=== PATIENT | male | born 1945 | race Caucasian/White ===

== ENCOUNTER 2017-05-15 20:46 | Inpatient (IN) | payer MEDICARE ==
[~2017-05-15] VITALS: Ht 170.1 cm; Wt 79.4 kg
--- NOTE | ~2017-05-15 | PR ---
[place], [place] PROGRESS NOTE NAME: EVANGELISTA ROSARIO UNIT #: [id number] ROOM: 310 DOCTOR: CASTRO VOGEL MD BIRTHDATE: [birth year] DOS: 05/17/2017 CHIEF COMPLAINT: "I don't feel well." SUMMARY OF THE VISIT: The patient was interviewed as he rested quietly in bed. He reports that he feels very nauseated and upset and that he did have loose bowel movements this morning. He also continues to complain of significant depression and just feels like giving up. MENTAL STATUS: He is alert and oriented. Mood does seem to be horribly depressed. Affect is flat, blunted and constricted. He continues to speak in a very soft whisper as if he has no desire or energy to carry on. He denies kalli or hypomania and likewise there are no psychotic symptoms noted. Memory for the most part is intact. PLAN: I will increase his Remeron from 15 to 22.5 mg at bedtime in an effort to impact positively on his mood. We will continue to engage in individual and elizondo milieu activity with the plan to return home when psychiatrically stable. CASTRO VOGEL MD CM:PNTRANS [id number] CASTRO VOGEL MD 05/17/17 1118 interface
--- NOTE | ~2017-05-15 | PR ---
[place], [place] PROGRESS NOTE NAME: EVANGELISTA ROSARIO UNIT #: [id number] ROOM: 310 DOCTOR: CASTRO VOGEL MD BIRTHDATE: [birth year] DOS: 05/20/2017 CHIEF COMPLAINT: "I just feel so out of it." SUMMARY OF THE VISIT: The patient was interviewed as he sat in the breakfast area attempting to eat his breakfast. He had approximately a half of his breakfast eaten. He engaged in very brief conversation and had a hard time focusing. He reports that despite the increase in the Remeron, he continues to feel very spaced out and very somnolent in the morning. He also continues to have persistent depressive symptoms. MENTAL STATUS: He is alert and oriented. Mood does seem to still be depressed. Affect is flat, blunted and constricted. He still talks very whisper like. There is no kalli or hypomania. There are no overt auditory or visual hallucinations. No delusions, no paranoia. Short, intermediate and long-term memories for the most part are intact. PLAN: Given the fact that he is continuing to have increased side effects with the Remeron, I will discontinue Remeron in lieu of Trintellix 10 mg at bedtime. The Trintellix should not cause the overall level of somnolence that he is having, plus it should improve concentration and cognition. We will continue to engage in individual and elizondo milieu activity, returning to the least restrictive environment when psychiatrically stable. CASTRO VOGEL MD CM:PNTRANS 2 CASTRO VOGEL MD 05/20/1723 interface
--- NOTE | ~2017-05-15 | PR ---
[place], [place] PROGRESS NOTE NAME: EVANGELISTA ROSARIO UNIT #: [id number] ROOM: 310 DOCTOR: CASTRO VOGEL MD BIRTHDATE: [birth year] DOS: 05/23/2017 CHIEF COMPLAINT: "I want to be able to go home soon." SUMMARY OF THE VISIT: The patient was interviewed in the dining area. He actually engaged in much more spontaneous and elaborate conversation. He made better eye contact. He continues to report depression, but there does seem to be a trend towards improvement. He does report tolerating the medication well and did tolerate the Abilify well last evening. MENTAL STATUS: He is alert and oriented. Mood does seem to be trending towards euthymia, although he does not vocalize this. There is no kalli or hypomania. There are no overt auditory or visual hallucinations. No delusions, no paranoia. Memory is intact. PLAN: I will maintain his current dose of Trintellix and Abilify, engage in individual and elizondo milieu activity, returning then to the least restrictive environment when stable. CASTRO VOGEL MD CM:PNTRANS CASTRO VOGEL MD 05/23/17 0945 interface
--- NOTE | ~2017-05-15 | PR ---
[place], [place] PROGRESS NOTE NAME: EVANGELISTA ROSARIO UNIT #: [id number] ROOM: 310 DOCTOR: CASTRO VOGEL MD BIRTHDATE: [birth year] DOS: 05/24/2017 CHIEF COMPLAINT: "I don't know if I have a place to go." SUMMARY OF THE VISIT: The patient was interviewed in the dining area. He had completed his breakfast and was sitting interacting with peers. He was much more conversant than he had been during the early part of his stay. He actually was spontaneous in his thought process and was able to form full sentences. He was concerned that he would not necessarily have a place to go. When I discussed this with the treatment team, it was noted that his family voiced concern about him returning home if he was not attending to his ADLs. This seems now to be a moot point as he has been bathing, taking care of himself, changing his clothes as needed. MENTAL STATUS: He is much more alert and oriented. He is conversant. Mood does seem to be strongly trending towards euthymia. Affect is much more appropriate. There is no symptom suggestive of kalli or hypomania. There are no overt auditory or visual hallucinations. No delusions. Memory for the most part seems to be intact. PLAN: I will continue his current medication regimen of Trintellix 20 mg a day, augment it with Abilify 5, may need to increase the Abilify further, but we will continue to monitor and utilize these doses. We will continue to engage in individual and elizondo milieu activity with the ultimate plan to return home when psychiatrically stable. CASTRO VOGEL MD CM:PNTRANS 0937 CASTRO VOGEL MD 05/24/17 0959 interface
--- NOTE | ~2017-05-15 | PR ---
[place], [place] PROGRESS NOTE NAME: EVANGELISTA ROSARIO UNIT #: [id number] ROOM: 310 DOCTOR: CASTRO VOGEL MD BIRTHDATE: [birth year] DOS: 05/22/2017 CHIEF COMPLAINT: "I want to be able to go home soon." SUMMARY OF THE VISIT: The patient was interviewed as he was sitting in front of his breakfast. He had barely touched his breakfast, perhaps eating about 20%. He continued to talk in a very soft whisper and reported at one level he wanted to go home, but then when pressed, he stated he is still feeling horribly depressed. The only positive is he is no longer having the somnolence that he had with the Remeron. He did report sleeping well with the Trintellix without the hangover effect. He continues to be depressed. MENTAL STATUS: He is alert and oriented. Mood does still seem to be horribly depressed. He is sad with a constricted affect. He speaks in a soft whisper like manner and most of his responses tended to be short and simple. There was no kalli or hypomania. There are no overt auditory or visual hallucinations. No delusions, no paranoia. Memory for the most part is intact. PLAN: I will go ahead and augment the Trintellix with a low dose of Abilify, utilizing Abilify 5 mg at bedtime to try to be catalytic in making the Trintellix work faster. I will renew his p.r.n. Ativan should he require further intervention. Engage in individual and elizondo milieu activity with the plan to return to the least restrictive environment when psychiatrically stable. CASTRO VOGEL MD CM:PNTRANS 6 CASTRO VOGEL MD 05/22/1757 interface
--- NOTE | ~2017-05-15 | PR ---
[place], [place] PROGRESS NOTE NAME: EVANGELISTA ROSARIO UNIT #: [id number] ROOM: 310 DOCTOR: CASTRO VOGEL MD BIRTHDATE: [birth year] DOS: 05/19/2017 CHIEF COMPLAINT: "I slept better, I feel so much better." SUMMARY OF THE VISIT: The patient was interviewed as he rested quietly in bed. He engaged readily in conversation. He was less sedate than he was yesterday and his speech was a little bit more directed and louder than the whisper that he normally speaks. He did report that he is feeling better than upon admission and is seeing day-to-day improvement. MENTAL STATUS: He is alert and oriented to person, place and very approximate to time. Mood does seem to be finally trending towards euthymia. Affect is more appropriate. There is no kalli or hypomania. There are no overt auditory or visual hallucinations. No delusions, no paranoia. Short, intermediate and long-term memory are intact. PLAN: I will maintain his current psychotropic regimen, engage in individual and elizondo milieu activity, returning to the least restrictive environment when psychiatrically stable. CASTRO VOGEL MD CM:PNTRANS 0736 CASTRO VOGEL MD 05/19/17 0913 interface
--- NOTE | ~2017-05-15 | PR ---
[place], [place] PROGRESS NOTE NAME: EVANGELISTA ROSARIO UNIT #: [id number] ROOM: 310 DOCTOR: CASTRO VOGEL MD BIRTHDATE: [birth year] DOS: 05/26/2017 CHIEF COMPLAINT: "I slept a little better, but I feel so overwhelmed." SUMMARY OF THE VISIT: The patient was interviewed in the dining area where he sat after eating breakfast. He seems more down in the last 2 days than he did previously. How much of this is because the holidays approaching, family has consistently reported to us that he does very poorly around holidays that they tend to exacerbate his depression horribly. He does report difficulty falling asleep and sleep continuity disturbance. Otherwise, he denies any issues related to the medications themselves. MENTAL STATUS: He is alert and oriented. Mood does seem to be rather depressed. Affect is flat and blunted with a constricted range, although he does perk up relatively easily. There is no kalli or hypomania. There are no overt auditory or visual hallucinations. No delusions, no paranoia. PLAN: I will go ahead and increase the Abilify to 12.5 mg at bedtime to augment the effectiveness of the Trintellix. I will add Rozerem p.r.n. for sleep, in case he requires intervention. Continue to engage in individual and elizondo milieu activity, returning to the least restrictive environment when psychiatrically stable. CASTRO VOGEL MD CM:PNTRANS 9 1 CASTRO VOGEL MD 05/26/17910 interface
--- NOTE | ~2017-05-15 | PR ---
[place], [place] PROGRESS NOTE NAME: EVANGELISTA ROSARIO UNIT #: [id number] ROOM: 310 DOCTOR: CASTRO VOGEL MD BIRTHDATE: [birth year] DOS: 05/25/2017 CHIEF COMPLAINT: "I didn't sleep last night, I was up at 2:00, I was up at 4:00. I was up at 6:00." SUMMARY OF THE VISIT: The patient was interviewed in the dining area. He looked much more forewarned and worried than he had the previous 2 days. He did report to me that he had a very fitful sleep and was tossing and turning through most of the night. He did also seemed more depressed as his responses tended to be shorter, simpler and his eye contact was markedly less than previously. Staff notes that the family has voiced concern with how the patient does on holidays and that he does tend to decompensate on holidays because of the added family stress. MENTAL STATUS: He is alert and oriented. Mood does seem to be very down and depressed this morning. Affect is much more constricted and blunted. He endorses multiple neurovegetative symptoms once again. There is no kalli or hypomania. There are no overt auditory or visual hallucinations. No delusions, no paranoia. Memory for the most part is intact. PLAN: I will increase his Abilify from 5 to 10 mg at bedtime, utilizing it to augment the effectiveness of the Trintellix, continue to support and monitor, continue to engage in individual and elizondo milieu activity, returning to the least restrictive environment when psychiatrically stable. CASTRO VOGEL MD CM:PNTRANS 8 CASTRO VOGEL MD 05/25/17917 interface
--- NOTE | ~2017-05-15 | PR ---
[place], [place] PROGRESS NOTE NAME: EVANGELISTA ROSARIO UNIT #: [id number] ROOM: 310 DOCTOR: CASTRO VOGEL MD BIRTHDATE: [birth year] DOS: 05/18/2017 CHIEF COMPLAINT: "I am just so tired." SUMMARY OF THE VISIT: The patient was interviewed in the dining area where he was sitting with several peers. Upon approach, he did attempt to engage in very brief superficial conversation. He did not make good eye contact; rather he looked down at his lap. He reports that he is just feeling so tired and has absolutely no energy or desire to do anything. He is sleeping better at night per his report. Appetite remains fair. MENTAL STATUS: He is alert and oriented. Mood does seem to be depressed. Affect remains flat, blunted and constricted. His speech is soft, whisper like and very minimal. There is no hypomania or kalli. There are no auditory or visual hallucinations. No delusions, no paranoia. Short term, intermediate and long-term memories are relatively fully intact. PLAN: I will continue to increase the Remeron, increasing it now from 22.5 to 30 mg at bedtime to see if we can lessen any daytime somnolence. I will discontinue the Rozerem at this point given the fact that he is so somnolent in the morning. We will engage in individual and elizondo milieu activity with the plan to return home or the least restrictive environment when stable. CASTRO VOGEL MD CM:PNTRANS CASTRO VOGEL MD 05/18/17 0953 interface
--- NOTE | ~2017-05-15 | PR ---
[place], [place] PROGRESS NOTE NAME: EVANGELISTA ROSARIO UNIT #: [id number] ROOM: 310 DOCTOR: CASTRO VOGEL MD BIRTHDATE: [birth year] DOS: 05/28/2017 CHIEF COMPLAINT: "I just don't feel good." SUMMARY OF THE VISIT: The patient was interviewed in the dining area where he was attempting to eat breakfast. He was eating very slowly. He seems again somnolent and seemed to be alternating between either not sleeping at night, but being more awake during the day or if I adjust his nighttime medicine so he sleeps, he seems to have residual hangover and somnolence. Nurses report last night he slept extremely well through the entire night with the dose of Rozerem, but now he seems somewhat somnolent and hard to process. MENTAL STATUS: He is alert and oriented with time gaps. Mood does seem to be more euthymic, but right now he does seem to be overly somnolent. There is no kalli or hypomania. There are no overt auditory or visual hallucinations. No delusions, no paranoia. Short term, intermediate, and long-term memory for the most part is intact. PLAN: I will go ahead and lower the Abilify from 12.5 mg at bedtime to 10, hoping that the subtraction of 2.5 mg lessons enough of the somnolence that I can still give him the Rozerem straight and have him be more awake in the morning. We will continue to engage in individual and elizondo milieu activities, returning to the least restrictive environment when stable. CASTRO VOGEL MD CM:PNTRANS [id number] CASTRO VOGEL MD 05/28/17 1029 interface
--- NOTE | ~2017-05-15 | PR ---
[place], [place] PROGRESS NOTE NAME: EVANGELISTA ROSARIO UNIT #: [id number] ROOM: 310 DOCTOR: CASTRO VOGEL MD BIRTHDATE: [birth year] DOS: 05/27/2017 CHIEF COMPLAINT: "I didn't sleep, but it wasn't because of the medicine, it was because of all the coughing next door." SUMMARY OF THE VISIT: The patient was interviewed in the dining area. He was rather flat and blunted. Most of this though seems to be frustration because he had a rough night and did not sleep well. His next door neighbor was coughing throughout the night and that kept him up. Later after we talked, he reapproached me to ask me if he thought he would be ready for discharge soon. I did nod and tell him that as long as he felt ready, we would attempt to facilitate that process. He convincingly denies medication side effects and feels that the medicines are working. MENTAL STATUS: He is alert and oriented. Mood does seem to be trending towards euthymia. Affect is more appropriate. There is no kalli or hypomania. There are no overt auditory or visual hallucinations. No delusions, no paranoia. Short, intermediate, and long-term memory are intact. PLAN: I will change Rozerem from p.r.n. to straight just to make certain that he gets a good night sleep. We will then reevaluate in the morning as to determine further length of stay and discharge plans. CASTRO VOGEL MD CM:PNTRANS [id number] CASTRO VOGEL MD 05/27/17 1035 interface
--- NOTE | ~2017-05-15 | PR ---
[place], [place] PROGRESS NOTE NAME: EVANGELISTA ROSARIO UNIT #: [id number] ROOM: 310 DOCTOR: CASTRO VOGEL MD BIRTHDATE: [birth year] DOS: 05/21/2017 CHIEF COMPLAINT: "I am still hungry, can I have more breakfast." SUMMARY OF THE VISIT: The patient was interviewed in the dining area where he had completed his entire breakfast. This is in franz contrast to the last several days when he was barely eating his breakfast and seemed rather somnolent. He was much more awake and alert and was able to actually engage in conversation. He reports that with the new medicine change, he did sleep well, but does not feel the hangover and the somnolence that he had previously. He was hungry enough to request that he have seconds. MENTAL STATUS: He is alert and oriented. Mood does seem to be starting to trend toward improvement. Affect is much more appropriate. He was able to engage in more meaningful conversation and actually carry on a conversation that was not limited by him being fragmented and disjointed. There was no hypomania or kalli noted. There were no auditory or visual hallucinations noted. Short, intermediate, and long-term memory are intact. PLAN: He does seem to already be tolerating the Trintellix well. I will go ahead and increase it from 10 to 20 mg at bedtime. Monitor for risk, benefit, continue to engage in individual and elizondo milieu activity with the ultimate plan to return to the least restrictive environment when psychiatrically stable. CASTRO VOGEL MD CM:PNTRANS 0844 CASTRO VOGEL MD 05/21/1709 interface
--- NOTE | ~2017-05-15 | WRIGHTHP ---
[place], [place] PATIENT HISTORY AND PHYSICAL EXAM NAME[id number] UNIT #: [id number] ROOM: 310 DOCTOR: CASTRO VOGEL MD BIRTHDATE: [birth year] DOS: 05/16/2017 INITIAL PSYCHIATRIC EVALUATION CHIEF COMPLAINT: "I have just been so depressed." HISTORY OF PRESENT ILLNESS: This is a 72-year-old white male who was brought to [facility] Emergency Room by his family due to increased fatigue and decreased responsiveness. During that evaluation the patient endorsed significant depression for the last several months. During this period of time, he reports he has not been sleeping at night. 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 He wakes up extremely fatigued and anergic and has absolutely no motivation to do anything. Appetite has also been somewhat poor. He is feeling hopeless and helpless and has had fleeting thoughts of suicide. He is now admitted to rule out organic factors and attempt to stabilize on medication. PAST MEDICAL HISTORY: Remarkable for coronary artery disease, carotid stenosis, hypertension, history of a CVA, noninsulin dependent diabetes and reportedly a history of bipolar disorder. MENTAL STATUS: The patient is alert and oriented. Mood is overwhelmingly depressed. Affect is flat, blunted and constricted. His speech is whisper like and muffled. It seems to be a chore for him to even talk. He does endorse multiple neurovegetative symptoms and fleeting suicidal thoughts. There is no kalli or hypomania. There are no overt auditory or visual hallucinations. No delusions, no paranoia. Short, intermediate and long-term memories are intact. DIAGNOSES: Major depression, recurrent, severe; also vitamin D deficiency is noted. A screening examination revealed a vitamin D level that is low at 7.4. PLAN: I have already started him on Remeron 15 mg at bedtime and discontinued his Lexapro. I may have to increase the dose of the Remeron further. I will go ahead and augment with vitamin D 50,000 International Units every Sunday and add Rozerem for now 8 mg at bedtime as a non-addictive sleep aid. The patient complained to me of severe constipation. I will add Dulcolax and then defer further treatment to the hospitalist. We will engage in individual and elizondo milieu activity with the plan to return to the least restrictive environment when psychiatrically stable. [place], [place] PATIENT HISTORY AND PHYSICAL EXAM NAME: EVANGELISTA ROSARIO UNIT #: [id number] ROOM: 310 DOCTOR: CASTRO VOGEL MD BIRTHDATE: [birth year] CASTRO VOGEL MD CM:HISPHYS:PATIENT HISTORY AND PHYSICAL EXAMINATION [id number] CASTRO VOGEL MD 05/16/17 1250 interface
--- NOTE | ~2017-05-15 | DS ---
[place], [place] DISCHARGE SUMMARY NAME: EVANGELISTA ROSARIO UNIT #: [id number] ROOM: 310 DOCTOR: CASTRO VOGEL MD BIRTHDATE: [birth year] DOS: 05/29/2017 CHIEF COMPLAINT: "I've just been so depressed." HISTORY OF PRESENT ILLNESS: This is a 72-year-old white male who was brought to [facility] Emergency Room by his family due to increased fatigue and decreased responsiveness. During the evaluation there, the patient endorsed significant depression for the last several months. During this period of time, he reports he has not been sleeping at night. 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 He wakes up extremely fatigued with marked anergia, and absolutely no motivation at all. Appetite has also been poor. He endorsed feeling hopeless and helpless and had fleeting suicidal thoughts. He is now admitted to the [facility] to rule out further organic factors and attempt to stabilize on medication while we engaged in individual and elizondo milieu activity. PAST MEDICAL HISTORY: Remarkable for coronary artery disease, carotid stenosis, hypertension, history of a CVA, noninsulin dependent diabetes and a history of bipolar disorder. SUMMARY OF HOSPITAL COURSE: The patient was admitted to the unit where he was started on Remeron 15 mg at bedtime. Routine screening examination showed him to have a low vitamin D level, so vitamin D 50,000 International Units was added. His Lexapro was discontinued due to ineffectiveness. Eventually, he was started on Rozerem 8 mg at bedtime. He continued to complain of persistent sleep issues and continue to be extremely despondent and depressed. Abilify was added as an augmenting agent with the antidepressant first at 5 mg with good results as far as aiding sleep. When it was increased to 10, he became somewhat somnolent, and the Rozerem was discontinued. The next night he did sleep well without the hangover, but he continued to vacillate between being unable to sleep to being increasingly somnolent. Abilify was increased to 12.5 mg at bedtime and eventually had to be lowered to 10 mg at bedtime because he required the addition of the Rozerem back to aid sleep. With this combination of medications, he slept well, was able to wake up refreshed without any somnolence and was able to engage in normal activities of living as well as attend to groups and participate actively. He improved sufficiently enough that there was no suicidal thoughts, homicidal thoughts or any self-injurious thoughts. He denied medication side effects from the medicines themselves. MENTAL STATUS AT DISCHARGE: The patient is alert and oriented. Mood does seem to be strongly trending towards euthymia. Affect is appropriate. There is no kalli, hypomania or psychosis. Memory for the most part is intact. FINAL DIAGNOSIS: Major depression, recurrent, severe. PLAN: All of his prescriptions have been E-scribed to [facility]. He is set up to follow up at the [facility]. He is medically stable, psychiatrically stable and his bio psychosocial needs will be met by his family and the [facility]. [place], [place] DISCHARGE SUMMARY NAME: EVANGELISTA ROSARIO UNIT #: [id number] ROOM: 310 DOCTOR: CASTRO VOGEL MD BIRTHDATE: [birth year] CASTRO VOGEL MD CM:DISCHARG 0937 1000 CASTRO VOGEL MD 05/29/17 0959 interface
[2017-05-15 22:16] VITALS: BP 154/62
[2017-05-15] MEDS ORDERED: NORVASC10 MG PO (23:42)
[2017-05-15] MEDS ORDERED: COREG12.5 M1 PO (23:43)
[2017-05-15] MEDS ORDERED: CLOPIDOGREL75 MG PO (23:44)
[2017-05-15] MEDS ORDERED: PRINIVIL10 MG PO (23:46)
[2017-05-15] MEDS ORDERED: LATU20TA PO (23:48)
[2017-05-15] MEDS ORDERED: ZOCOR10 MG PO (23:49)
[2017-05-16 00:21] VITALS: BP 154/62
[2017-05-16] MEDS ORDERED: ATIVAN1 MG PO (00:25)
[2017-05-16] MEDS ORDERED: ATIVAN2 MG/1 ML IM (00:26)
[2017-05-16 07:27] LABS: BASO % 0.3 % (0.0-1.0); EOS # 0.1 10*3/uL (0.0-0.4); EOS % 1.3 % (1.0-4.0); HEMATOCRIT 35.6 % (42.0-52.0); HEMOGLOBIN 12.4 g/dl (14.0-18.0); LYMPH # 1.7 10*3/uL (1.3-4.4); LYMPH % 25.7 % (27.0-41.0); MEAN CORPUSCULAR HGB 32.4 pg (27.0-31.0); MEAN CORPUSCULAR HGB CONC 34.8 g/dl (33.0-37.0); MEAN PLATELET VOLUME 9.7 fl (9.6-12.3); MONO # 0.7 10*3/uL (0.1-1.0); MONO % 10.6 % (3.0-9.0); NEUT # 4.1 10*3/uL (2.3-7.9); NEUT % 61.8 % (47.0-73.0); PLATELET COUNT AUTOMATED 179 10*3/uL (130-400); RED BLOOD COUNT 3.83 10*6/uL (4.50-5.90); RED CELL DISTRI WIDTH 12.1 % (0-14.5); WHITE BLOOD COUNT 6.7 10*3/uL (4.8-10.8)
[2017-05-16 07:57] LABS: ALBUMIN 3.1 gm/dl (3.1-4.5); ALKALINE PHOSPHATASE 79 U/L (45-117); BUN 13 mg/dl (7-24); CHLORIDE 106 mmol/L (98-107); CHOLESTEROL 91 mg/dL (<200); CREATININE 0.64 mg/dL (0.70-1.30); HDL CHOLESTEROL 34 mg/dl (40-60); LDL CHOLESTEROL 43 mg/dL (9-159); POTASSIUM 3.5 mmol/L (3.5-5.1); SGOT/AST 12 IU/L (3-35); SGPT/ALT 21 U/L (12-78); SODIUM 141 mmol/L (136-145); TOTAL PROTEIN 6.2 gm/dL (6.4-8.2); TRIGLYCERIDES 71 mg/dl (<150); VLDL CHOLESTEROL 14 mg/dL (6-40)
[2017-05-16 08:17] VITALS: BP 149/58
[2017-05-16 08:18] LABS: VITAMIN D, 25-HYDROXY 7.4 ng/mL (30-100)
[2017-05-16 18:01] VITALS: BP 116/78
[2017-05-16 23:14] VITALS: BP 113/60
[2017-05-17 07:52] VITALS: BP 127/64
[2017-05-17 17:13] VITALS: BP 131/56
[2017-05-18 07:56] VITALS: BP 124/56
[2017-05-18 20:00] VITALS: BP 104/60
[2017-05-19 08:05] VITALS: BP 121/82
[2017-05-19 20:06] VITALS: BP 138/56
[2017-05-20 07:43] VITALS: BP 134/64
[2017-05-20 20:00] VITALS: BP 120/52
[2017-05-21 07:45] VITALS: BP 145/66
[2017-05-21 20:00] VITALS: BP 126/71
[2017-05-22 08:04] VITALS: BP 113/77
[2017-05-22 17:15] VITALS: BP 145/67
[2017-05-22 21:48] VITALS: BP 120/63
[2017-05-23 07:52] VITALS: BP 115/76
[2017-05-23 16:53] VITALS: BP 110/55
[2017-05-23 21:07] VITALS: BP 118/55
[2017-05-24 07:52] VITALS: BP 125/56
[2017-05-24 17:04] VITALS: BP 122/55
[2017-05-24 19:18] VITALS: BP 105/60
[2017-05-25 07:45] VITALS: BP 121/62
[2017-05-25 16:14] VITALS: BP 124/58
[2017-05-26 07:55] VITALS: BP 115/67
[2017-05-26 20:00] VITALS: BP 116/60
[2017-05-27 07:58] VITALS: BP 117/65
[2017-05-27 20:00] VITALS: BP 115/65
[2017-05-28 07:34] VITALS: BP 121/78
[2017-05-28 20:00] VITALS: BP 112/64
[2017-05-29 08:17] VITALS: BP 102/54
[2017-05-29] MEDS ORDERED: ARIPIPRAZOLE10 MG PO (09:31)
[2017-05-29] MEDS ORDERED: BRIN20TA PO (09:31)
[2017-05-29] MEDS ORDERED: ROZEREM8 MG PO (09:31)
[2017-05-29] MEDS ORDERED: LEXAPRO10 MG PO (12:58)
== END 2017-05-29 15:10 | disposition home or self-care (01) | DRG 885 ==
LOC: 3N 20:46
PROVIDERS: Psychiatry & Neurology Psychiatry
DX: F33.2 Major depressive disorder, recurrent severe without psychotic features (principal); E11.9 Type 2 diabetes mellitus without complications; D64.9 Anemia, unspecified; I65.21 Occlusion and stenosis of right carotid artery; E55.9 Vitamin D deficiency, unspecified; I10 Essential (primary) hypertension; F41.9 Anxiety disorder, unspecified; I25.10 Atherosclerotic heart disease of native coronary artery without angina pectoris; Z86.73 Personal history of transient ischemic attack (TIA), and cerebral infarction without residual deficits; Z75.1 Person awaiting admission to adequate facility elsewhere; Z88.0 Allergy status to penicillin; Z79.899 Other long term (current) drug therapy; Z95.1 Presence of aortocoronary bypass graft